=== PATIENT | female | born 1945 | race African-American/Black ===

== ENCOUNTER 2017-07-29 19:23 | Observation (INO) | payer OTHER, MEDICAID ==
[~2017-07-29] VITALS: Ht 182.9 cm; Wt 60.8 kg
[~2017-07-29 19:23] MED LIST: ACET1TAB12 PO; AMLO5TAB4 PO; ASPI-785 PO; ATEN-176 PO; ATOR10TA69 PO; BACL-141 PO; FOLI-43 PO; FURO-152 PO; ISOS10TA2 PO; LEVE500T19 PO; LOSA100T3 PO; LOVA40TA73 PO; NAPR-681 PO; OMEP20CA10 PO; PHEN100C4 PO; TEMA15CA PO; TRAM50TA3 PO; TRAZ50CO; VALP250S12 PO
[2017-07-29] MEDS ORDERED: MORPHINE SULFATE 4 MG/ML CPJ (NOT FOR IM USE) IV STA (20:50)
[2017-07-29] MEDS ORDERED: SODIUM CHLORIDE 0.9% 1,000 ML IV ONE (20:50)
[2017-07-29] MEDS ORDERED: ONDANSETRON HCL 4MG/2ML VIAL IV STA (20:50)
[2017-07-29] MEDS ORDERED: SODIUM CHLORIDE 0.9% 1000ML BAG (SEPSIS BOLUS) IV ONE (21:00)
[2017-07-29] MEDS ORDERED: LEVOFLOXACIN 750MG PREMIX 150 ML IV ONE (21:00)
[2017-07-29 21:11] LABS: EOSINOPHILS % 3.3 % (0.0-5.0); HEMATOCRIT. 38.5 % (36.0-48.0); HEMOGLOBIN. 13.1 g/dL (12.0-16.0); MEAN CORPUSCULAR HEMOGLOBIN 34.1 pg (28.0-32.0); MEAN CORPUSCULAR VOLUME 100.1 fL (81.0-99.0); MEAN PLATELET VOLUME 7.1 fl (7.4-10.4); NEUTROPHILS % 52.7 % (40.0-76.0); PLATELET 162 x1000/uL (130-400); RED BLOOD CELL COUNT 3.85 mill/uL (4.2-5.4); RED CELL DISTRIBUTION WIDTH 14.6 % (11.6-14.6)
[2017-07-29 21:13] LABS: CHLORIDE 106 mEq/L (98-107)
[2017-07-29 21:20] LABS: INR 1.1; PARTIAL THROMBOPLASTIN TIME 22.3 sec (23.4-31.0); PROTHROMBIN TIME 10.9 sec (9.4-11.6)
[2017-07-29] MEDS ORDERED: MORPHINE SULFATE 4 MG/ML CPJ (NOT FOR IM USE) IV ONE (23:00)
[2017-07-30] MEDS ORDERED: ASPIRIN 81MG TABLET PO ONE (01:00)
[2017-07-30 04:24] LABS: CLARITY URINE CLOUDY (CLEAR); COLOR URINE YELLOW (YELLOW); KETONES URINE NEGATIVE (NEGATIVE); LEUKOCYTE ESTERASE URINE 1+ (NEGATIVE); NITRITE URINE NEGATIVE (NEGATIVE); OCCULT BLOOD URINE NEGATIVE (NEGATIVE); PROTEIN URINE NEGATIVE (NEGATIVE); SPECIFIC GRAVITY URINE 1.017 (1.005-1.030)
[2017-07-30] MEDS ORDERED: MORPHINE SULFATE 4 MG/ML CPJ (NOT FOR IM USE) IV PRN (05:45)
[2017-07-30] MEDS ORDERED: ONDANSETRON HCL 4MG/2ML VIAL IV PRN ×2 (05:45→12:00)
[2017-07-30 08:00] VITALS: BP 116/65
[2017-07-30 12:00] VITALS: BP 111/70
[2017-07-30] MEDS ORDERED: ACETAMINOPHEN 325MG TABLET PO PRN (12:00)
[2017-07-30] MEDS ORDERED: CLONIDINE 0.1MG TABLET PO PRN (12:00)
[2017-07-30] MEDS ORDERED: HYDROCODONE/ACETAMINOPHEN 5/325MG TABLET PO PRN (12:00)
[2017-07-30] MEDS ORDERED: IPRATROPIUM/ALBUTEROL 0.5-3(2.5)MG/3ML NEB INH PRN (12:00)
[2017-07-30 12:22] VITALS: BP 121/70
[2017-07-30 15:09] LABS: BASOPHILS % 0.6 % (0.0-2.0); EOSINOPHILS % 3.5 % (0.0-5.0); HEMATOCRIT. 39.4 % (36.0-48.0); HEMOGLOBIN. 14.2 g/dL (12.0-16.0); LYMPHOCYTES % 28.2 % (20.0-50.0); MEAN CORPUSCULAR HEMOGLOBIN 36.2 pg (28.0-32.0); MEAN PLATELET VOLUME 6.9 fl (7.4-10.4); MONOCYTES % 10.6 % (2.0-8.0); NEUTROPHILS % 57.1 % (40.0-76.0); PLATELET 157 x1000/uL (130-400); RED BLOOD CELL COUNT 3.94 mill/uL (4.2-5.4); RED CELL DISTRIBUTION WIDTH 14.5 % (11.6-14.6)
[2017-07-30 15:35] LABS: CHLORIDE 103 mEq/L (98-107); ETHANOL BLOOD < 10 mg/dL
[2017-07-30 15:48] LABS: CREATINE KINASE 61 IU/L (26-192); CREATINE KINASE MB FRACTION 0.9 ng/mL (0.5-3.6)
[2017-07-30 16:00] VITALS: BP 96/62
[2017-07-30] MEDS ORDERED: LORAZEPAM 2MG/ML CPJ IV PRN (16:45)
[2017-07-30] MEDS: ENOXAPARIN 40MG/0.4ML SYR SUBCUT SCH (18:43)
[2017-07-30 20:00] VITALS: BP 94/50
[2017-07-30] MEDS: LEVOFLOXACIN 500MG PREMIX 100 ML IV SCH (21:39)
[2017-07-30 23:22] LABS: AMMONIA 46 uMol/L (<32)
[2017-07-30 23:26] LABS: CREATINE KINASE MB FRACTION 0.6 ng/mL (0.5-3.6)
[2017-07-31] VITALS (7 sets, daily range): BP systolic 90–122; BP diastolic 51–71
[2017-07-31 04:24] LABS: *BENZODIAZEPINES SCREEN URINE NEGATIVE (NEGATIVE)
[2017-07-31 04:41] LABS: *COCAINE SCREEN URINE NEGATIVE (NEGATIVE); CANNABINOID URINE SCREEN NEGATIVE (NEGATIVE); METHADONE URINE SCREEN NEGATIVE (NEGATIVE); OPIATES URINE SCREEN NEGATIVE (NEGATIVE); PHENCYCLIDINE URINE SCREEN NEGATIVE (NEGATIVE)
[2017-07-31 06:16] LABS: *AMPHETAMINES SCREEN URINE NEGATIVE (NEGATIVE); *BARBITURATES SCREEN URINE NEGATIVE (NEGATIVE)
[2017-07-31 07:38] LABS: BASOPHILS % 0.5 % (0.0-2.0); EOSINOPHILS % 3.4 % (0.0-5.0); HEMATOCRIT. 35.8 % (36.0-48.0); HEMOGLOBIN. 12.5 g/dL (12.0-16.0); LYMPHOCYTES % 33.9 % (20.0-50.0); MEAN CORPUSCULAR HEMOGLOBIN 34.9 pg (28.0-32.0); MEAN CORPUSCULAR VOLUME 99.6 fL (81.0-99.0); MEAN PLATELET VOLUME 7.3 fl (7.4-10.4); MONOCYTES % 12.4 % (2.0-8.0); NEUTROPHILS % 49.8 % (40.0-76.0); PLATELET 139 x1000/uL (130-400); RED CELL DISTRIBUTION WIDTH 14.5 % (11.6-14.6)
[2017-07-31] MEDS: OMEPRAZOLE 20MG CAPSULE EXTENDED RELEASE PO SCH (07:53)
[2017-07-31 07:57] LABS: CHLORIDE 104 mEq/L (98-107)
[2017-07-31 08:08] LABS: HDL CHOLESTEROL 66 mg/dL (40-59); LDL CHOLESTEROL 75 mg/dL (5-100)
[2017-07-31] MEDS: ASPIRIN 81MG EC TABLET PO SCH (08:17)
[2017-07-31] MEDS: FOLIC ACID 1MG TABLET PO SCH (08:17)
[2017-07-31] MEDS: FUROSEMIDE 20MG TABLET PO SCH (08:17)
[2017-07-31] MEDS: AMLODIPINE 5MG TABLET PO SCH (08:19)
[2017-07-31] MEDS: ENOXAPARIN 40MG/0.4ML SYR SUBCUT SCH (12:16)
[2017-07-31] MEDS: LACTULOSE 20G/30ML UDC PO SCH ×2 (12:57→16:14)
[2017-07-31] MEDS: LEVOFLOXACIN 500MG PREMIX 100 ML IV SCH (20:03)
[2017-07-31] MEDS ORDERED: ATORVASTATIN CALCIUM 10MG TABLET PO SCH (21:00)
[2017-07-31] MEDS: VALPROIC ACID 250MG CAPSULE PO SCH (23:52)
[2017-07-31] MEDS: LEVETIRACETAM 500MG TABLET PO SCH (23:52)
[2017-08-01 00:25] VITALS: BP 127/80
[2017-08-01 04:00] VITALS: BP 129/79
[2017-08-01] MEDS: VALPROIC ACID 250MG CAPSULE PO SCH ×2 (05:19→13:25)
[2017-08-01 06:26] LABS: HEMATOCRIT 34.9 % (36.0-48.0); HEMOGLOBIN 12.2 g/dL (12.0-16.0); MEAN CORPUSCULAR HEMOGLOBIN 34.6 pg (28.0-32.0); MEAN CORPUSCULAR VOLUME 99.5 fL (81.0-99.0); PLATELET 138 x1000/uL (130-400); RED BLOOD CELL COUNT 3.51 mill/uL (4.2-5.4); RED CELL DISTRIBUTION WIDTH 14.7 % (11.6-14.6)
[2017-08-01] MEDS: OMEPRAZOLE 20MG CAPSULE EXTENDED RELEASE PO SCH (07:24)
[2017-08-01 07:52] LABS: CHLORIDE 100 mEq/L (98-107)
[2017-08-01 08:00] VITALS: BP_SYST 119; BP_SYST 94; BP_DIAS 59; BP_DIAS 70
[2017-08-01] MEDS: FUROSEMIDE 20MG TABLET PO SCH (08:21)
[2017-08-01] MEDS: LEVETIRACETAM 500MG TABLET PO SCH (08:21)
[2017-08-01] MEDS: FOLIC ACID 1MG TABLET PO SCH (08:21)
[2017-08-01] MEDS: ASPIRIN 81MG EC TABLET PO SCH (08:21)
[2017-08-01] MEDS: LACTULOSE 20G/30ML UDC PO SCH ×2 (08:22→17:00)
[2017-08-01] MEDS: AMLODIPINE 5MG TABLET PO SCH (08:22)
[2017-08-01 08:35] LABS: AMMONIA 29 uMol/L (<32)
[2017-08-01 12:00] VITALS: BP 108/64
[2017-08-01] MEDS: ENOXAPARIN 40MG/0.4ML SYR SUBCUT SCH (13:23)
[2017-08-01 15:29] VITALS: BP 108/64
[2017-08-01 16:00] VITALS: BP 108/65
== END 2017-08-01 18:15 | disposition home health service (06) ==
LOC: ER 19:42 → INTOOBSV 07-30 00:59 → 7WST 07-30 00:59 → ENRESERV 07-30 06:59
PROVIDERS: ADMIT Internal Medicine; ATTEND Internal Medicine
DX: M79.605 Pain in left leg (principal); I11.9 Hypertensive heart disease without heart failure; E78.00 Pure hypercholesterolemia, unspecified; F03.90 Unspecified dementia, unspecified severity, without behavioral disturbance, psychotic disturbance, mood disturbance, and anxiety; G47.00 Insomnia, unspecified; I25.2 Old myocardial infarction; F10.20 Alcohol dependence, uncomplicated; G40.909 Epilepsy, unspecified, not intractable, without status epilepticus; E72.20 Disorder of urea cycle metabolism, unspecified; J84.9 Interstitial pulmonary disease, unspecified; W18.30XA Fall on same level, unspecified, initial encounter; Z86.73 Personal history of transient ischemic attack (TIA), and cerebral infarction without residual deficits; Z79.899 Other long term (current) drug therapy; Z96.642 Presence of left artificial hip joint
CPT/HCPCS: 36415; 70450; 71045; 72192; 73502; 73552; 73560; 73700; 80048; 80053; 80061; 80185; 80305; 81003; 82140; 82542; 82550; 82553; 83605; 83880; 84443; 84484; 85025; 85027; 85610; 85730; 86850; 86900; 86901; 87040; 87077; 87086; 87186; 93005; 93880; 96361; 96365; 96366; 96372; 96375; 96376; 97162; 99285; A6261; G0378; G0482; J1650; J1956; J2270; J2405; J7030; J7050

== ENCOUNTER 2017-10-27 13:04 | Observation (INO) | payer OTHER, MEDICAID ==
[~2017-10-27] VITALS: Ht 182.9 cm; Wt 62.1 kg
[2017-10-27] MEDS ORDERED: LORAZEPAM 2MG/ML CPJ IV ONE (14:00)
[2017-10-27 16:31] LABS: BASOPHILS % 0.6 % (0.0-2.0); EOSINOPHILS % 3.8 % (0.0-5.0); LYMPHOCYTES % 35.1 % (20.0-50.0); MEAN CORPUSCULAR HEMOGLOBIN 34.4 pg (28.0-32.0); MEAN CORPUSCULAR VOLUME 100.6 fL (81.0-99.0); MEAN PLATELET VOLUME 6.8 fl (7.4-10.4); NEUTROPHILS % 48.5 % (40.0-76.0); PLATELET 154 x1000/uL (130-400); RED BLOOD CELL COUNT 3.48 mill/uL (4.2-5.4); RED CELL DISTRIBUTION WIDTH 13.6 % (11.6-14.6)
[2017-10-27 16:34] LABS: CHLORIDE 102 mEq/L (98-107)
[2017-10-27 16:37] LABS: INR 1.1; PARTIAL THROMBOPLASTIN TIME 25.3 sec (23.4-31.0); PROTHROMBIN TIME 11.8 sec (9.4-11.6)
[2017-10-27 16:38] LABS: ETHANOL BLOOD 77 mg/dL
[2017-10-27 17:10] LABS: CLARITY URINE CLEAR (CLEAR); COLOR URINE YELLOW (YELLOW); KETONES URINE NEGATIVE (NEGATIVE); LEUKOCYTE ESTERASE URINE TRACE (NEGATIVE); NITRITE URINE NEGATIVE (NEGATIVE); OCCULT BLOOD URINE NEGATIVE (NEGATIVE); PH URINE 5.5 (4.5-8.0); PROTEIN URINE NEGATIVE (NEGATIVE); SPECIFIC GRAVITY URINE 1.011 (1.005-1.030)
[2017-10-27 17:24] LABS: *BARBITURATES SCREEN URINE NEGATIVE (NEGATIVE)
[2017-10-27 17:25] LABS: *AMPHETAMINES SCREEN URINE NEGATIVE (NEGATIVE); *BENZODIAZEPINES SCREEN URINE NEGATIVE (NEGATIVE); *COCAINE SCREEN URINE NEGATIVE (NEGATIVE); METHADONE URINE SCREEN NEGATIVE (NEGATIVE); OPIATES URINE SCREEN NEGATIVE (NEGATIVE)
[2017-10-27 17:26] LABS: CANNABINOID URINE SCREEN NEGATIVE (NEGATIVE); PHENCYCLIDINE URINE SCREEN NEGATIVE (NEGATIVE)
[2017-10-27] MEDS ORDERED: SODIUM CHLORIDE 0.9% 1,000 ML IV ONE (18:13)
[2017-10-27 22:56] VITALS: BP 138/78
[2017-10-27] MEDS ORDERED: CLONIDINE 0.1MG TABLET PO PRN (23:30)
[2017-10-27] MEDS ORDERED: ONDANSETRON HCL 4MG/2ML VIAL IV PRN (23:30)
[2017-10-27] MEDS ORDERED: ACETAMINOPHEN 325MG TABLET PO PRN (23:30)
[2017-10-27] MEDS ORDERED: DEXT 5%/0.45% NACL 1000ML 1,000 ML IV SCH (23:45)
[2017-10-27] MEDS ORDERED: VALPROIC ACID 250MG CAPSULE PO SCH (23:45)
[2017-10-28] VITALS: BP 138/78
[2017-10-28] MEDS: IPRATROPIUM/ALBUTEROL 0.5-3(2.5)MG/3ML NEB INH SCH ×3 (00:53→14:29)
[2017-10-28 04:00] VITALS: BP 19/100
[2017-10-28 07:38] LABS: BASOPHILS % 0.5 % (0.0-2.0); CHLORIDE 105 mEq/L (98-107); EOSINOPHILS % 3.1 % (0.0-5.0); HEMATOCRIT. 37.7 % (36.0-48.0); LYMPHOCYTES % 28.4 % (20.0-50.0); MEAN CORPUSCULAR HEMOGLOBIN 34.8 pg (28.0-32.0); MEAN PLATELET VOLUME 7.1 fl (7.4-10.4); PLATELET 150 x1000/uL (130-400); RED BLOOD CELL COUNT 3.74 mill/uL (4.2-5.4); RED CELL DISTRIBUTION WIDTH 13.5 % (11.6-14.6)
[2017-10-28 08:03] LABS: LDL CHOLESTEROL 63 mg/dL (5-100)
[2017-10-28 08:04] LABS: HDL CHOLESTEROL 78 mg/dL (40-59)
[2017-10-28 08:05] LABS: T4 FREE 1.05 ng/dL (0.76-1.46)
[2017-10-28 08:31] VITALS: BP 132/75
[2017-10-28] MEDS ORDERED: AMLODIPINE 5MG TABLET PO SCH (09:00)
[2017-10-28] MEDS ORDERED: ASPIRIN 81MG EC TABLET PO SCH (09:00)
[2017-10-28] MEDS ORDERED: ENOXAPARIN 40MG/0.4ML SYR SUBCUT SCH (09:00)
[2017-10-28] MEDS ORDERED: MULTIVITAMINS,THER W-MINERALS TABLET PO SCH (09:00)
[2017-10-28] MEDS ORDERED: THIAMINE HCL 100MG TABLET PO SCH (09:00)
[2017-10-28] MEDS ORDERED: VALPROIC ACID 250MG CAPSULE PO SCH (09:00)
[2017-10-28] MEDS ORDERED: LEVETIRACETAM 500MG TABLET PO SCH (09:00)
[2017-10-28 12:30] VITALS: BP 108/62
[2017-10-28 15:39] VITALS: BP 111/65
[2017-10-28 16:26] VITALS: BP 97/63
== END 2017-10-28 17:00 | disposition home or self-care (01) ==
LOC: ER 13:04 → 6WST 19:24 → INTOOBSV 19:24 → ENRESERV 20:38
PROVIDERS: ADMIT Internal Medicine; ATTEND Internal Medicine
DX: R07.89 Other chest pain (principal); F10.129 Alcohol abuse with intoxication, unspecified; F03.90 Unspecified dementia, unspecified severity, without behavioral disturbance, psychotic disturbance, mood disturbance, and anxiety; D64.9 Anemia, unspecified; D72.819 Decreased white blood cell count, unspecified; E78.00 Pure hypercholesterolemia, unspecified; E78.5 Hyperlipidemia, unspecified; I10 Essential (primary) hypertension; I25.2 Old myocardial infarction; Z86.73 Personal history of transient ischemic attack (TIA), and cerebral infarction without residual deficits; Z87.891 Personal history of nicotine dependence
CPT/HCPCS: 36415; 70450; 71045; 80053; 80061; 80185; 80305; 81003; 82962; 83690; 84439; 84443; 84484; 85025; 85610; 85730; 93005; 94640; 96360; 96361; 96372; 99285; G0378; G0482; J1650; J7030; J7620; J3490